=== PATIENT | female | born 1945 | race Caucasian/White ===

== ENCOUNTER → 2020-06-14 | Outpatient (CLI) | payer MEDICARE, BC ==
[~2020-06-14] MED LIST: ALBU8.5H8 INH; CALCIUM PO; CELE100C PO; IRON PO; LEVO50TA5 PO; LOSA100T14 PO; MELA3TAB31 PO; MULT-658 PO; PANT40TA6 PO; SERT50TA28 PO
[2020-06-14 09:17] LABS: MEAN CORPUSCULAR HEMOGLOBIN 24.5 pg (27.0-34.8); MEAN CORPUSCULAR HGB CONC 31.3 g/dL (32.4-35.8); PLATELET COUNT 196 x10^3/uL (130-400); RED BLOOD COUNT 4.87 x10^6/uL (3.82-5.3); RED CELL DISTRIBUTION WIDTH 34.6 % (9.6-15.2)
[2020-06-14 09:30] LABS: ALBUMIN 4.1 g/dL (3.4-5.0); CALCIUM 9.9 mg/dL (8.5-10.1)
[2020-06-14 09:33] LABS: ALANINE AMINOTRANSFERASE 24 U/L (12-78); ALKALINE PHOSPHATASE 117 U/L (45-117); BILIRUBIN,TOTAL 0.4 mg/dL (0.2-1.0); TOTAL PROTEIN 7.6 g/dL (6.4-8.2)
[2020-06-14 09:41] LABS: ANION GAP 4 mmol/L (5-15); CHLORIDE 110 mmol/L (98-107)
[2020-06-14 10:21] LABS: MD YES
[2020-06-14 10:27] LABS: BASOS#(MANUAL) 0.12 x10^3/uL (0-0.1); BASOS% (MANUAL) 3 % (0-1); EOS#(MANUAL) 0.21 x10^3/uL (0.0-0.4); EOS% (MANUAL) 5 % (1-7); LYMPH#(MANUAL) 0.66 x10^3/uL (1-3.4); LYMPHS% (MANUAL) 16 % (22-44); MONOS#(MANUAL) 0.33 x10^3/uL (0.3-2.7); MONOS% (MANUAL) 8 % (2-9); SEG#(MANUAL) 2.79 x10^3/uL (1.8-6.8); SEGS% (MANUAL) 68 % (42-75)
[2020-06-14 10:29] LABS: ANISOCYTOSIS 2+; MICROCYTOSIS 1+
[2020-06-14 10:30] LABS: <PLATELET ESTIMATE> ADEQUATE; <PLT MORPHOLOGY> NORMAL PLT MORPH; HYPOCHROMIA 1+; OVALOCYTES 1+
== END | disposition home or self-care (01) ==
LOC: STAR 07:27
PROVIDERS: ATTEND Internal Medicine Gastroenterology
DX: Z01.818 Encounter for other preprocedural examination (principal); D50.9 Iron deficiency anemia, unspecified; R59.0 Localized enlarged lymph nodes; K22.70 Barrett's esophagus without dysplasia; R00.1 Bradycardia, unspecified; Z20.822 Contact with and (suspected) exposure to COVID-19; Z86.010 Personal history of colon polyps; Z79.899 Other long term (current) drug therapy
CPT/HCPCS: 36415; 80053; 85025; 93005; U0003

== ENCOUNTER 2020-06-20 12:01 | Day surgery (SDC) | payer MEDICARE, BC ==
[~2020-06-20] VITALS: Ht 154.9 cm; Wt 63.5 kg
[2020-06-20] MEDS ORDERED: CHLORHEXIDINE 15 ML UDC PO ONE (12:30)
[2020-06-20] MEDS ORDERED: LACTATED RINGERS 1,000 ML IV SCH (12:30)
[2020-06-20 12:41] VITALS: BP 133/84
[2020-06-20] MEDS ORDERED: PROPOFOL 50 ML ONE (13:25)
[2020-06-20] MEDS ORDERED: DIPHENHYDRAMINE 50 MG/ML, 1ML IVPush PRN (14:30)
[2020-06-20] MEDS ORDERED: EPHEDRINE 50 MG/ML, 1ML IM PRN (14:30)
[2020-06-20] MEDS ORDERED: PROMETHAZINE 25 MG/ML, 1ML IVPush PRN (14:30)
[2020-06-20] MEDS ORDERED: ONDANSETRON 2MG/ML, 2ML IVPush PRN (14:30)
[2020-06-20] MEDS ORDERED: FENTANYL PF 100 MCG/2ML IV PRN (14:30)
[2020-06-20] MEDS ORDERED: EPHEDRINE 50 MG/ML, 1ML IVPush PRN (14:30)
[2020-06-20] MEDS ORDERED: LABETALOL 5MG/ML, 20ML IV PRN (14:30)
== END 2020-06-20 16:45 | disposition home or self-care (01) ==
LOC: OUT 12:01
PROVIDERS: ATTEND Internal Medicine Gastroenterology
DX: D64.9 Anemia, unspecified (principal); K22.70 Barrett's esophagus without dysplasia; K29.50 Unspecified chronic gastritis without bleeding; K44.9 Diaphragmatic hernia without obstruction or gangrene; K57.30 Diverticulosis of large intestine without perforation or abscess without bleeding; K64.0 First degree hemorrhoids; F41.9 Anxiety disorder, unspecified; I10 Essential (primary) hypertension; E78.5 Hyperlipidemia, unspecified; Z79.899 Other long term (current) drug therapy; Z88.2 Allergy status to sulfonamides; Z88.8 Allergy status to other drugs, medicaments and biological substances; Z91.040 Latex allergy status
CPT/HCPCS: 44360; 45378; 88305; J2704; J7120

== ENCOUNTER 2020-07-22 13:22 | Outpatient (CLI) | payer MEDICARE, BC | END 2020-07-22 23:59 | disposition home or self-care (01) | LOC: CFH 13:22 | PROVIDERS: ATTEND Surgery | DX: K44.9 Diaphragmatic hernia without obstruction or gangrene (principal); K21.9 Gastro-esophageal reflux disease without esophagitis; K22.70 Barrett's esophagus without dysplasia; R16.1 Splenomegaly, not elsewhere classified; M41.84 Other forms of scoliosis, thoracic region; K57.30 Diverticulosis of large intestine without perforation or abscess without bleeding; Z90.710 Acquired absence of both cervix and uterus | CPT/HCPCS: 71250; 74176 ==